=== PATIENT | female | born 1975 | race Caucasian/White ===

== ENCOUNTER 2019-03-14 12:59 | Observation (INO) | payer OTHER ==
[~2019-03-14] VITALS: Ht 152.4 cm; Wt 54.4 kg
[2019-03-14 13:16] VITALS: BP 128/80
[2019-03-14] MEDS ORDERED: LAMICTAL100 MG PO (13:21)
[2019-03-14] MEDS ORDERED: AMPHETAMINE SAL20 M1 PO (13:21)
[2019-03-14] MEDS ORDERED: LEXAPRO 10 MG T10 M2 PO (13:21)
[2019-03-14] MEDS ORDERED: FLEXERIL PO (13:22)
[2019-03-14 14:19] LABS: ABSOLUTE BASOPHILS 0.1 thou/uL (0.0-0.2); ABSOLUTE EOSINOPHILS 0.1 thou/uL (0.0-0.7); ABSOLUTE LYMPHOCYTES 1.3 thou/uL (0.8-5.3); ABSOLUTE MONOCYTES 0.5 thou/uL (0.0-1.2); EOSINOPHILS 1.9 %; HEMATOCRIT 42.2 % (37.0-47.0); HEMOGLOBIN 13.9 gm/dL (12.0-15.0); LYMPHOCYTES 22.5 %; MCH 30.3 pg (26.0-34.0); MCV 91.7 fL (80.0-100.0); MONOCYTES 7.7 %; MPV 9.3 fl. (7.2-11.1); NUCLEATED RBCS 0 /100WBC; PLATELET COUNT* 253 thou/uL (150-400); POLYS 66.9 %; RDW-CV 13.1 % (10.5-14.5); WBC 5.9 thou/uL (4.0-11.0)
[2019-03-14 14:26] LABS: CREATININE 0.7 mg/dL (0.6-1.3); POTASSIUM 4.4 mmol/L (3.5-5.1)
[2019-03-14 14:33] LABS: ALBUMIN 3.8 g/dL (3.4-5.0); TOTAL BILIRUBIN 0.3 mg/dL (<0.1-1.0); TOTAL PROTEIN 6.7 g/dL (6.4-8.2)
[2019-03-14 15:39] VITALS: BP 115/73
--- NOTE | 2019-03-14 15:40 | NUR ---
ADMISSION. PATIENT REC'D TO ROOM 113 FROM ER VIA WC W/ PRESENT. PATIENT STATES HAVING NUMBNESS/TINGLING AND CRAMPING IN BLE SINCE LAST WEEK, FRIDAY, WHILE ON VACATION IN [place]. PATIENT STATES HAS BEEN HAVING DIFF WALKING AND THIS MORNING WAS UNABLE TO WALK. STATES THAT SHE LOOKED LIKE SHE WAS WALKING FLAT FOOTED AND "LIKE A GOOSE". ADMISSION AND POC REVIEWED W/ PATIENT AND . DR FITZGERALD IN TO SEE PATIENT. 20GA TO LT AC NOTED WNL. SEE MAR. PATIENT A&OX4. ~TJRN
[2019-03-14 20:00] VITALS: BP 106/68
[2019-03-15] VITALS: BP 106/57
--- NOTE | 2019-03-15 05:01 | NUR ---
PATIENT SLEPT WELL DURING THIS SHIFT. PT UP TO BATHROOM WITH SLOW STEADY GAIT. PT STATES SHE FEELS SAFE AMBULATING TO BATHROOM BY HERSELF. PT DENIES PAIN. PT STATES NUMBNESS AND WEAKNESS IS SLIGHTLY BETTER. FLUIDS COMPLETED AND PT SALINE LOCKED. FREQUENTLY USED ITEMS AND CALL LIGHT WITHIN REACH. SIDERAILS UPX2. WILL CONTINUE TO MONITOR.
[2019-03-15 08:10] VITALS: BP 113/75
[2019-03-15] MEDS ORDERED: B12INJ SUBQ (08:23)
[2019-03-15] MEDS ORDERED: INSULIN SYRING1 EA28 SUBQ (08:23)
[2019-03-15] MEDS ORDERED: VITAMIN B-12500 MCG PO (09:56)
[2019-03-15 09:57] VITALS: BP 113/75
--- NOTE | 2019-03-15 10:18 | NUR ---
PATIENT C/O TINGLING IN BECK LE'S THIS AM BUT STATED IT WAS MUCH BETTER TODAY. PATIENT AMBULATING WITHOUT DIFFICULTY. NEURO HERE THIS AM TO SEE PATIENT AND PATIENT TO HAVE VIT B12 INJECTIONS X 1 WEEK. PER NEURO AND MEDICINE OK TO DISCHARGE HOME. PATIENT INSTRUCTED ON B12 INJECTIONS. VERBALIZES UNDERSTANDING OF PAPERWORK AND SCRIPT. PATIENT AMBULATED OUT WITH THIS NURSE AND SPOUSE AND ALL BELONGINGS.
--- NOTE | 2019-03-17 11:30 | CON ---
[address] [address] CONSULTATION Name: BERNARDACHAY M Room: [address] Maribel M.RDonaldo#: [id number] Admission: 03/14/19 Attend Phys: Waylon Allen MD Discharge: 03/15/19 Date of : 73 Report #: [id number] THIS REPORT FOR: //name// CC: Waylon Bello NEUROLOGY CONSULTATION HISTORY OF PRESENT ILLNESS: The patient is a 43-year-old female, who had been on vacation one week ago. When she was in [place], she had drunk quite a bit of alcohol and in addition to that, had also been out in the heat. She had cramping of her calves and numbness and tingling in the feet. In fact, she found it difficult to walk because she was not sure where her feet, were in space. The patient has had some slight improvement, but not enough improvement. She did go to the Emergency Room in [place] and they told her that this was all part of the alcohol and excessive [place] weather. PAST MEDICAL HISTORY: Anxiety, cardiac ablation, ADHD. PAST SURGICAL HISTORY: Tonsillectomy. MEDICATIONS: Adderall 20 mg daily, lamotrigine 100 mg daily, Lexapro 10 mg daily, cyclobenzaprine 10 mg p.r.n. muscle spasms. ALLERGIES: ERYTHROMYCIN. PHYSICAL EXAMINATION: VITAL SIGNS: Temperature is 36.8, pulse rate 77, respiratory rate 16, blood pressure 113/75, bedside pulse oximetry 100% on room air. NEUROLOGIC: Cranial nerves 2 through 12 are grossly intact. Motor exam demonstrates symmetrical strength in all 4 extremities with tone and bulk normal. Reflexes are symmetrical throughout. Plantar responses are flexor. Coordination demonstrates no evidence of dysmetria. Gait was not tested. LABORATORY DATA: Hematology; white blood cell count 5.9, hemoglobin 13.9, hematocrit 42.2. Chemistries; sodium 139, potassium 4.4, chloride 105, carbon dioxide 29, BUN 13, creatinine 0.7, glucose 88. IMPRESSION: This patient has paresthesias. Review of her lab work demonstrates a low normal B12 level. Dr. Allen is written for B12 1000 mcg daily for 3 days, after which time she may take oral B12 500 mcg daily. In 1 month, she should follow up with her primary care physician to have a repeat B12 level drawn. I also cautioned her about being out in the heat this summer. If the symptoms continue and do not improve, then further imaging study should be considered, particularly an MRI of [place] [address] CONSULTATION Name: NICO MENCHACANOLVIA Nix Room: [address] Maribel Carvalho#: [id number] Admission: 03/14/19 Attend Phys: Waylon Allen MD Discharge: 03/15/19 Date of : 73 Report #: [id number] I thank you for your kind referral of the patient. <ELECTRONICALLY SIGNED> By: Nadine Phan DO 03/17/19 1130 [id number] Phan DO /nt
== END 2019-03-15 10:21 | disposition home or self-care (01) ==
LOC: M.ERS 12:59 → M.TBA-ER 15:18 → M.ORTHSURG 15:18
PROVIDERS: Nurse Practitioner Family; ADMIT Internal Medicine
DX: G62.2 Polyneuropathy due to other toxic agents (principal); T51.0X1A Toxic effect of ethanol, accidental (unintentional), initial encounter; Y92.9 Unspecified place or not applicable; F41.9 Anxiety disorder, unspecified; F90.9 Attention-deficit hyperactivity disorder, unspecified type; R20.2 Paresthesia of skin; D51.9 Vitamin B12 deficiency anemia, unspecified; Z98.890 Other specified postprocedural states; Z90.89 Acquired absence of other organs; Z88.1 Allergy status to other antibiotic agents